=== PATIENT | female | born 1945 | race Caucasian/White ===

== ENCOUNTER 2020-02-09 09:55 | Observation (INO) | payer MEDICARE, OTHER ==
[~2020-02-09] VITALS: Ht 165.1 cm; Wt 60.9 kg
[~2020-02-09 09:55] MED LIST: LOSA50TA3 PO; METF500T PO; NATE60TA PO; TAMO20TA4 PO
[2020-02-09 10:20] LABS: BASOPHILS # (AUTO) 0.1 X10'3 (0-0.2); EOSINOPHILS # (AUTO) 0.2 X10'3 (0-0.9); EOSINOPHILS % (AUTO) 3.2 % (0-6); HEMATOCRIT 40.3 % (35.0-45.0); HEMOGLOBIN 13.6 g/dl (12.0-16.0); LYMPHOCYTES # (AUTO) 1.6 X10'3 (1.1-4.8); LYMPHOCYTES % (AUTO) 28.3 % (21-51); MEAN CORPUSCULAR HEMOGLOBIN 32.8 PG (27.0-31.0); MEAN CORPUSCULAR HGB CONC 33.7 g/dL (33.0-36.5); MEAN CORPUSCULAR VOLUME 97.4 FL (78-98); MEAN PLATELET VOLUME 7.7 FL (7.4-10.4); MONOCYTES # (AUTO) 0.6 X10'3 (0-0.9); MONOCYTES % (AUTO) 9.9 % (2-12); NEUTROPHILS # (AUTO) 3.3 X10'3 (1.8-7.7); NEUTROPHILS % (AUTO) 57.6 % (42-75); PLATELET COUNT 193 X10'3 (140-440); RED BLOOD COUNT 4.13 X10'6 (4.20-5.60); RED CELL DISTRIBUTION WIDTH 13.6 % (11.5-14.5); WHITE BLOOD COUNT 5.8 X10'3 (4.5-11.0)
--- NOTE | 2020-02-09 10:38 | NUR ---
Pt brought back from CT, pt placed on monitor and VS being taken
[2020-02-09 10:45] LABS: PARTIAL THROMBOPLASTIN TIME 26 SECONDS (22-32)
--- NOTE | 2020-02-09 10:59 | NUR ---
pt refused the iv pa steffany aware.
[2020-02-09 11:03] LABS: ALANINE AMINOTRANSFERASE 26 U/L (12-78); ALBUMIN 3.9 G/DL (3.4-5.0); ALBUMIN/GLOBULIN RATIO 1.1 (1.1-1.5); ALKALINE PHOSPHATASE 69 IU/L (46-116); ANION GAP 10 (8-16); ASPARTATE AMINO TRANSFERASE 21 U/L (10-37); BILIRUBIN,TOTAL 0.9 MG/DL (0.1-1.0); BLOOD UREA NITROGEN 13 MG/DL (7-18); BUN/CREATININE RATIO 17.6 (6.6-38.0); CALCIUM 9.2 MG/DL (8.5-10.1); CHLORIDE 99 MMOL/L (99-107); CREATININE 0.74 MG/DL (0.40-0.90); GLUCOSE 167 MG/DL (70-104); POTASSIUM 3.1 MMOL/L (3.5-5.1); SODIUM 138 MMOL/L (135-145); TOTAL CARBON DIOXIDE 29.4 MMOL/L (24-32); TOTAL PROTEIN 7.3 G/DL (6.4-8.2); eGFR 77 ML/MIN
[2020-02-09 11:08] LABS: TROPONIN I < 0.04 NG/ML (0.0-0.05)
[2020-02-09] MEDS ORDERED: METF-436 PO (12:24)
[2020-02-09] MEDS ORDERED: CHLO25TA10 PO (12:25)
[2020-02-09] MEDS ORDERED: acetaminophen 325mg tablet PO PRN ×2 (12:50)
[2020-02-09] MEDS ORDERED: ondansetron/PF 4mg/2ml inj IV PRN (12:50)
[2020-02-09] MEDS ORDERED: magnesium hydroxide 30ml (MOM) UD suspension PO PRN (12:50)
[2020-02-09] MEDS ORDERED: mag hydrox/Alum hydrox/simeth 30ml oral suspension PO PRN (12:50)
[2020-02-09] MEDS ORDERED: iohexol 350MG/ML 100ml bottle IV ONE (13:05)
[2020-02-09 13:32] LABS: CHOL/HDL RATIO 2.5 (0.00-4.99); CHOLESTEROL 237 MG/DL (0-200); HDL CHOLESTEROL 94 MG/DL (35-60); HEMOGLOBIN A1C 6.1 % (4.5-6.2); LDL CHOLESTEROL 129 MG/DL (50-100); TRIGLYCERIDES 65 MG/DL (20-135)
[2020-02-09 14:57] VITALS: BP 123/52
--- NOTE | 2020-02-09 16:49 | NUR ---
Page Sent PAGER ID: [phone] MESSAGE: DEUCE [phone]-RE: [phone] CHEL COTTER...MICHELLE...EEG CANNOT DO STUDY UNTIL AFTER 10AM TOMORROW
--- NOTE | 2020-02-09 17:55 | NUR ---
Problems reprioritized. Patient report given, questions answered & plan of care reviewed with SUN ROJO.
[2020-02-09] MEDS ORDERED: magnesium Cl slow-release 64mg tablet PO PRN (19:45)
[2020-02-09] MEDS ORDERED: magnesium 4gm in 100ml NS 100 ML IV PRN (19:45)
[2020-02-09] MEDS ORDERED: potassium CL 10mEq/100ml bag 100 ML IV PRN (19:45)
[2020-02-09] MEDS ORDERED: potassium Cl 20 mEq SR tablet PO PRN (19:45)
[2020-02-09] MEDS: K and/or MAG REPLACEMENT MC SCH (19:58)
[2020-02-09] MEDS: potassium Cl 20 mEq SR tablet PO PRN ×2 (19:59→23:36)
[2020-02-09 22:00] VITALS: BP_SYST 124; BP_SYST 126; BP_SYST 127; BP_DIAS 71; BP_DIAS 76; BP_DIAS 82
[2020-02-10 02:00] VITALS: BP 138/77
[2020-02-10 06:00] VITALS: BP 111/61
--- NOTE | 2020-02-10 06:05 | NUR ---
received report from yasmin landers
--- NOTE | 2020-02-10 06:16 | NUR ---
Report given to Ana GARSIA.
[2020-02-10 06:17] LABS: ALBUMIN 3.2 G/DL (3.4-5.0); ANION GAP 4 (8-16); BLOOD UREA NITROGEN 14 MG/DL (7-18); CALCIUM 8.5 MG/DL (8.5-10.1); CHLORIDE 107 MMOL/L (99-107); CHOL/HDL RATIO 2.6 (0.00-4.99); CHOLESTEROL 207 MG/DL (0-200); CREATININE 0.56 MG/DL (0.40-0.90); GLUCOSE 108 MG/DL (70-104); HDL CHOLESTEROL 79 MG/DL (35-60); LDL CHOLESTEROL 111 MG/DL (50-100); POTASSIUM 3.8 MMOL/L (3.5-5.1); SODIUM 142 MMOL/L (135-145); TOTAL CARBON DIOXIDE 31.3 MMOL/L (24-32); TRIGLYCERIDES 79 MG/DL (20-135); eGFR > 90 ML/MIN
[2020-02-10 06:22] LABS: EOSINOPHILS # (AUTO) 0.2 X10'3 (0-0.9); EOSINOPHILS % (AUTO) 4.2 % (0-6); HEMATOCRIT 35.6 % (35.0-45.0); HEMOGLOBIN 12.1 g/dl (12.0-16.0); LYMPHOCYTES # (AUTO) 1.3 X10'3 (1.1-4.8); LYMPHOCYTES % (AUTO) 29.1 % (21-51); MEAN CORPUSCULAR HGB CONC 34.1 g/dL (33.0-36.5); MEAN PLATELET VOLUME 7.8 FL (7.4-10.4); MONOCYTES # (AUTO) 0.4 X10'3 (0-0.9); MONOCYTES % (AUTO) 9.6 % (2-12); NEUTROPHILS # (AUTO) 2.6 X10'3 (1.8-7.7); NEUTROPHILS % (AUTO) 56.1 % (42-75); PLATELET COUNT 161 X10'3 (140-440); RED BLOOD COUNT 3.67 X10'6 (4.20-5.60); RED CELL DISTRIBUTION WIDTH 13.7 % (11.5-14.5); WHITE BLOOD COUNT 4.6 X10'3 (4.5-11.0)
[2020-02-10] MEDS: K and/or MAG REPLACEMENT MC SCH (08:00)
[2020-02-10] MEDS ORDERED: aspirin 325mg tablet, delayed-release (Ecotrin) PO SCH (08:00)
[2020-02-10] MEDS ORDERED: ATOR10TA PO (09:12)
[2020-02-10] MEDS ORDERED: ASPI-845 PO (09:12)
[2020-02-10 10:00] VITALS: BP_SYST 111; BP_SYST 145; BP_SYST 149; BP_DIAS 61; BP_DIAS 76; BP_DIAS 86
[2020-02-10 10:57] VITALS: BP 113/63
--- NOTE | 2020-02-10 11:29 | NUR ---
Student documentation: I have reviewed all interventions, assessments performed and documented by Wojciech Holguin. Student Medication Administration: For this medication-pass time frame, all medication were reviewed, dispensed, administered and documented per hospital policy by Wojciech Holguin.
--- NOTE | 2020-02-10 11:38 | NUR ---
pt d/c with instructions, understanding of instructions, and w/all belongings walking out to private vehicle to f/u w/pcp also it was recommended for pt to f/u w/eeg, pt tells me that she will make her own appointments
== END 2020-02-10 11:40 | disposition home or self-care (01) ==
LOC: ER 09:56 → ED HOLD 12:48 → ORTHO 4S 14:35
PROVIDERS: ADMIT Internal Medicine; ATTEND Internal Medicine
DX: R41.82 Altered mental status, unspecified (principal); G45.9 Transient cerebral ischemic attack, unspecified; I10 Essential (primary) hypertension; E11.9 Type 2 diabetes mellitus without complications; Z85.3 Personal history of malignant neoplasm of breast; Z79.84 Long term (current) use of oral hypoglycemic drugs; Z79.82 Long term (current) use of aspirin; Z79.899 Other long term (current) drug therapy; Z88.5 Allergy status to narcotic agent
CPT/HCPCS: 36415; 70450; 70496; 70498; 70551; 71045; 80048; 80053; 80061; 82948; 83036; 83880; 84484; 85025; 85610; 85651; 85730; 87081; 92508; 92616; 93306; 97162; 97530; 99285; G0378; Q9967; 93005

== ENCOUNTER 2020-02-23 10:18 | Outpatient (CLI) | payer MEDICARE, OTHER ==
[~2020-02-23 10:18] MED LIST changes: +ASPI-845 PO; +ATOR10TA PO; +CHLO25TA10 PO; -LOSA50TA3 PO; -METF500T PO; -NATE60TA PO; -TAMO20TA4 PO
== END 2020-02-23 23:59 | disposition home or self-care (01) ==
LOC: RAD 10:18
PROVIDERS: ATTEND Family Medicine
DX: R55 Syncope and collapse (principal)
CPT/HCPCS: 95816

== ENCOUNTER 2022-05-04 15:29 | Outpatient (CLI) | payer MEDICARE, OTHER ==
[2022-05-04 16:48] LABS: BASOPHILS % (AUTO) 0.7 % (0-1); EOSINOPHILS # (AUTO) 0.1 X10'3 (0-0.9); EOSINOPHILS % (AUTO) 1.9 % (0-6); HEMATOCRIT 38.8 % (35.0-45.0); HEMOGLOBIN 12.7 g/dl (12.0-16.0); LYMPHOCYTES # (AUTO) 1.9 X10'3 (1.1-4.8); LYMPHOCYTES % (AUTO) 30.8 % (21-51); MEAN CORPUSCULAR HEMOGLOBIN 31.3 PG (27.0-31.0); MEAN CORPUSCULAR HGB CONC 32.7 g/dL (33.0-36.5); MEAN CORPUSCULAR VOLUME 95.6 FL (78-98); MEAN PLATELET VOLUME 7.4 FL (7.4-10.4); MONOCYTES # (AUTO) 0.6 X10'3 (0-0.9); MONOCYTES % (AUTO) 9.3 % (2-12); NEUTROPHILS # (AUTO) 3.6 X10'3 (1.8-7.7); NEUTROPHILS % (AUTO) 57.3 % (42-75); PLATELET COUNT 190 X10'3 (140-440); RED BLOOD COUNT 4.06 X10'6 (4.20-5.60); RED CELL DISTRIBUTION WIDTH 13.4 % (11.5-14.5); WHITE BLOOD COUNT 6.3 X10'3 (4.5-11.0)
[2022-05-04 17:08] LABS: ALANINE AMINOTRANSFERASE 20 U/L (12-78); ALBUMIN/GLOBULIN RATIO 1.3 (1.1-1.5); ALKALINE PHOSPHATASE 62 IU/L (46-116); ANION GAP 4 (8-16); ASPARTATE AMINO TRANSFERASE 23 U/L (10-37); BILIRUBIN,TOTAL 1.1 MG/DL (0.1-1.0); BLOOD UREA NITROGEN 17 MG/DL (7-18); BUN/CREATININE RATIO 27.4 (6.6-38.0); CALCIUM 8.9 MG/DL (8.5-10.1); CHLORIDE 102 MMOL/L (99-107); CHOL/HDL RATIO 2.4 (0.00-4.99); CHOLESTEROL 225 MG/DL (0-200); CREATININE 0.62 MG/DL (0.40-0.90); GLUCOSE 96 MG/DL (70-104); HDL CHOLESTEROL 93 MG/DL (35-60); LDL CHOLESTEROL 110 MG/DL (50-100); POTASSIUM 3.4 MMOL/L (3.5-5.1); SODIUM 141 MMOL/L (135-145); TOTAL CARBON DIOXIDE 34.6 MMOL/L (24-32); TOTAL PROTEIN 7.1 G/DL (6.4-8.2); TRIGLYCERIDES 81 MG/DL (20-135); eGFR > 90 ML/MIN
== END 2022-05-04 23:59 | disposition home or self-care (01) ==
LOC: LAB 15:29
PROVIDERS: ATTEND Family Medicine
DX: E78.5 Hyperlipidemia, unspecified (principal); R63.4 Abnormal weight loss
CPT/HCPCS: 36415; 80053; 80061; 84443; 85025; 85651

== ENCOUNTER 2022-05-08 09:05 | Outpatient (CLI) | payer MEDICARE, OTHER ==
[~2022-05-08 09:05] MED LIST changes: +iohexol 300mg/ml 100ml inj. ONE
== END 2022-05-08 23:59 | disposition home or self-care (01) ==
LOC: RAD 09:05
PROVIDERS: ATTEND Family Medicine
DX: J43.9 Emphysema, unspecified (principal); R63.4 Abnormal weight loss; J84.10 Pulmonary fibrosis, unspecified; K57.30 Diverticulosis of large intestine without perforation or abscess without bleeding; I25.10 Atherosclerotic heart disease of native coronary artery without angina pectoris; K86.89 Other specified diseases of pancreas; M51.35 Other intervertebral disc degeneration, thoracolumbar region; Z90.12 Acquired absence of left breast and nipple; Z98.82 Breast implant status
CPT/HCPCS: 71260; 74177; J3490; Q9967